=== PATIENT | male | born 1990 | race Caucasian/White ===

== ENCOUNTER 2023-05-11 09:41 | Day surgery (SDC) | payer BC ==
[2023-05-04 15:46] VITALS: BMI 34.2
[2023-05-11] MEDS ORDERED: Bupivacaine 0.25% HCL 30 ML VIAL ONE (12:08)
[2023-05-11] MEDS ORDERED: EPINEPHrine 1 MG/ML VIAL ONE (12:08)
[2023-05-11] MEDS ORDERED: PROPOFOL 20 ML ONE (12:22)
[2023-05-11] MEDS ORDERED: Rocuronium Bromide 10 MG/ML (10ML VIAL) ONE (12:22)
[2023-05-11] MEDS ORDERED: fentaNYL PF 100 MCG/2 ML SYRINGE ONE (12:24)
[2023-05-11] MEDS ORDERED: Sodium Chloride 0.9% 100 ML ONE (12:25)
[2023-05-11] MEDS ORDERED: CEFAZOLIN 2 GM VIAL ONE (12:25)
[2023-05-11] MEDS ORDERED: Ondansetron PF 4 MG/2 ML Vial ONE (12:49)
[2023-05-11] MEDS ORDERED: Ketorolac Tromethamine 30 MG (1 mL) VIAL ONE (12:49)
[2023-05-11] MEDS ORDERED: Dexamethasone 20 MG/5 ML VIAL ONE (12:49)
[2023-05-11] MEDS ORDERED: SUGAMMADEX SODIUM 200 MG/2 ML VIAL ONE (13:27)
[2023-05-11] MEDS ORDERED: Meperidine HCl/PF 25 MG (1 mL) VIAL ONE (13:45)
[2023-05-11] MEDS ORDERED: Promethazine HCl 25 MG/ML VIAL ONE (14:59)
== END 2023-05-11 15:53 | disposition home or self-care (01) ==
LOC: SDC 09:41
PROVIDERS: ATTEND Surgery
PROC: 0JB70ZZ Excision of Back Subcutaneous Tissue and Fascia, Open Approach (ICD-10-PCS; principal; 2023-05-11)
DX: D17.1 Benign lipomatous neoplasm of skin and subcutaneous tissue of trunk (principal); F32.A Depression, unspecified; F90.9 Attention-deficit hyperactivity disorder, unspecified type; G47.33 Obstructive sleep apnea (adult) (pediatric); Z79.899 Other long term (current) drug therapy
CPT/HCPCS: 88304; A6258; J0171; J0665; J1100; J1885; J2175; J2405; J2550; J2704; J3490

== ENCOUNTER 2023-05-18 14:29 | Outpatient (CLI) | payer BC | END 2023-05-18 14:30 | disposition home or self-care (01) | LOC: BICMRI 14:29 | PROVIDERS: ATTEND Family Medicine Sports Medicine | DX: M51.36 Other intervertebral disc degeneration, lumbar region (principal); M50.30 Other cervical disc degeneration, unspecified cervical region; M50.222 Other cervical disc displacement at C5-C6 level; M48.02 Spinal stenosis, cervical region; M47.816 Spondylosis without myelopathy or radiculopathy, lumbar region; M48.061 Spinal stenosis, lumbar region without neurogenic claudication; M25.78 Osteophyte, vertebrae | CPT/HCPCS: 72141; 72148 ==

== ENCOUNTER 2023-07-28 14:40 | Outpatient (CLI) | payer BC | END 2023-07-28 14:41 | disposition home or self-care (01) | LOC: BICULT 14:40 | PROVIDERS: ATTEND Surgery | DX: T88.8XXA Other specified complications of surgical and medical care, not elsewhere classified, initial encounter (principal) | CPT/HCPCS: 76999 ==

== ENCOUNTER → 2023-11-23 | Day surgery (SDC) | payer BC | LOC: ULT 13:34 | PROVIDERS: ATTEND Surgery | PROC: 00JV3ZZ Inspection of Spinal Cord, Percutaneous Approach (ICD-10-PCS; principal; 2023-11-23) | DX: T88.8XXA Other specified complications of surgical and medical care, not elsewhere classified, initial encounter (principal); Y83.9 Surgical procedure, unspecified as the cause of abnormal reaction of the patient, or of later complication, without mention of misadventure at the time of the procedure | CPT/HCPCS: 76942 ==